=== PATIENT | female | born 1955 | race Hispanic/Latino ===

== ENCOUNTER 2017-04-23 17:24 | Emergency (ER) | payer OTHER ==
[~2017-04-23] VITALS: Ht 162.6 cm; Wt 62.0 kg
[2017-04-23] MEDS ORDERED: LEVO100T5 PO (17:31)
[2017-04-23] MEDS ORDERED: METOCLOPRAMIDE INJ 10MG/2ML VIAL (J2765) IV ONE (18:15)
[2017-04-23] MEDS ORDERED: KETOROLAC 30 MG/ML VIAL (J1885) IV ONE (18:15)
[2017-04-23 19:16] VITALS: BP 146/90
[2017-04-23] MEDS ORDERED: PRED20TA PO (19:19)
[2017-04-23] MEDS ORDERED: ALBU17IN INH (19:19)
[2017-04-23] MEDS ORDERED: CLAR1TAB2 PO (19:19)
--- NOTE | 2017-04-24 08:17 | REP ---
CHEST PA AND LATERAL: 04/23/2017. CLINICAL HISTORY: 61-year-old female with chronic cough. COMPARISON: No prior study. FINDINGS: Lungs mildly hyperinflated with increased AP diameter and prominent retrosternal clear space. Central pulmonary arteries are mildly prominent. I see no pleural effusion, dense consolidation or parenchymal mass. The heart is not enlarged. The aorta is mildly tortuous, normal for age. Airway is midline. Bones without acute compression deformity. IMPRESSION: 1. Hyperinflation and prominent pulmonary arteries centrally suggesting some degree of COPD. No acute infiltrate, effusion, cardiomegaly, edema, atelectasis or mass. Signed by Tavo Ron MD 04/24/2017 10:37 A
== END 2017-04-23 19:29 | disposition home or self-care (01) ==
LOC: M ED 18:03
DX: G43.909 Migraine, unspecified, not intractable, without status migrainosus (principal); J45.909 Unspecified asthma, uncomplicated

== ENCOUNTER 2017-05-02 16:17 | Emergency (ER) | payer MEDICAID, OTHER, SELFPAY ==
[~2017-05-02] VITALS: Ht 162.6 cm; Wt 62.0 kg
[~2017-05-02 16:17] MED LIST: ALBU17IN INH; CLAR1TAB2 PO; LEVO100T5 PO; PRED20TA PO
[2017-05-02] MEDS ORDERED: TESS100C PO (17:39)
[2017-05-02] MEDS ORDERED: ZITHTAB PO (17:39)
[2017-05-02] MEDS ORDERED: CHERSYP3 PO (17:39)
[2017-05-02 17:47] VITALS: BP 175/91
--- NOTE | 2017-05-02 17:51 | REP ---
Clinical: Productive cough . Comparison: 04/23/2017 . Technique: PA and lateral. Findings: The mediastinum and cardiac silhouette are normal. The lung shahid are clear and without acute consolidation, effusion, or pneumothorax. The skeletal structures are intact and normal. Impression: 1. No acute cardiopulmonary process. Signed by Kirk Malave MD 05/02/2017 05:43 P
== END 2017-05-02 17:48 | disposition home or self-care (01) ==
LOC: M ED 16:17
DX: R05 Cough (principal)